=== PATIENT | male | born 2005 | race Hispanic/Latino ===

== ENCOUNTER 2024-12-18 20:06 | Emergency (ER) | payer SELFPAY ==
[2024-12-18] MEDS ORDERED: CEFAZOLIN SODIUM 2 GM/VIAL ONE (21:12)
[2024-12-18] MEDS ORDERED: HYDROCODONE/APAP 10/325 TAB ONE (21:12)
[2024-12-18] MEDS ORDERED: NA CHLORIDE 0.9% 100 ML ONE (21:12)
[2024-12-18] MEDS ORDERED: NA CHLORIDE 0.9% 500 ML ONE (21:12)
[2024-12-18] MEDS ORDERED: BACI/NEOMYCIN/POLY OINT 15GM TOP ONE (21:13)
--- NOTE | 2024-12-18 21:17 | EDPHYS ---
Physician Documentation [facility] Name: Marcelino Bell Age: 19 yrs Sex: Male : 2005 Arrival Date: 12/18/2024 Time: 20:06 Bed 5 Private MD: ED Physician Esa Pickens HPI: 12/18 20:58 This 19 yrs old Male presents to ER via Wheelchair with complaints of iris Laceration To Foot. 20:58 The patient has a laceration related to: walking. The laceration(s) is(are) located on iris the right leg. Onset: The symptoms/episode began/occurred just prior to arrival. Associated signs and symptoms: The patient has no apparent associated signs or symptoms. The patient has not experienced similar symptoms in the past. Historical: - Allergies: 20:19 No Known Allergies; vc1 - Home Meds: 20:19 None [Active]; vc1 - PMHx: 20:19 None; vc1 - PSHx: 20:19 None; vc1 - Immunization history:: Client reports having NOT received the Covid vaccine. Last tetanus immunization: up to date Flu vaccine is up to date. - Infectious Disease History:: Denies. - Social history:: Smoking status: Patient denies any tobacco usage or history of. ROS: 20:59 Constitutional: Negative for fever, chills, and weight loss, Eyes: Negative for injury, iris pain, redness, and discharge, ENT: Negative for injury, pain, and discharge, Neck: Negative for injury, pain, and swelling, Cardiovascular: Negative for chest pain, palpitations, and edema, Respiratory: Negative for shortness of breath, cough, wheezing, and pleuritic chest pain, Abdomen/GI: Negative for abdominal pain, nausea, vomiting, diarrhea, and constipation, Back: Negative for injury and pain, : Negative for injury, bleeding, discharge, and swelling, Skin: Negative for injury, rash, and discoloration, Neuro: Negative for headache, weakness, numbness, tingling, and seizure, Psych: Negative for depression, anxiety, suicide ideation, homicidal ideation, and hallucinations, Allergy/Immunology: Negative for hives, rash, and allergies, Endocrine: Negative for neck swelling, polydipsia, polyuria, polyphagia, and marked weight changes, 20:59 MS/extremity: Positive for laceration, pain, of the right foot and right leg, Exam: 20:59 Constitutional: This is a well developed, well nourished patient who is awake, alert, iris and in no acute distress. Head/Face: Normocephalic, atraumatic. Eyes: Pupils equal round and reactive to light, extra-ocular motions intact. Lids and lashes normal. Conjunctiva and sclera are non-icteric and not injected. Cornea within normal limits. Periorbital areas with no swelling, redness, or edema. ENT: Nares patent. No nasal discharge, no septal abnormalities noted. Tympanic membranes are normal and external auditory canals are clear. Oropharynx with no redness, swelling, or masses, exudates, or evidence of obstruction, uvula midline. Mucous membranes moist. Neck: Trachea midline, no thyromegaly or masses palpated, and no cervical lymphadenopathy. Supple, full range of motion without nuchal rigidity, or vertebral point tenderness. No Meningismus. Chest/axilla: Normal chest wall appearance and motion. Nontender with no deformity. No lesions are appreciated. Cardiovascular: Regular rate and rhythm with a normal S1 and S2. No gallops, murmurs, or rubs. Normal PMI, no JVD. No pulse deficits. Respiratory: Lungs have equal breath sounds bilaterally, clear to auscultation and percussion. No rales, rhonchi or wheezes noted. No increased work of breathing, no retractions or nasal flaring. Abdomen/GI: Soft, non-tender, with normal bowel sounds. No distension or tympany. No guarding or rebound. No evidence of tenderness throughout. Back: No spinal tenderness. No costovertebral tenderness. Full range of motion. Skin: Warm, dry with normal turgor. Normal color with no rashes, no lesions, and no evidence of cellulitis. Neuro: Awake and alert, GCS 15, oriented to person, place, time, and situation. Cranial nerves II-XII grossly intact. Motor strength 5/5 in all extremities. Sensory grossly intact. Cerebellar exam normal. Normal gait. Psych: Awake, alert, with orientation to person, place and time. Behavior, mood, and affect are within normal limits. 20:59 Musculoskeletal/extremity: Extremities: grossly normal except: laceration, pain, ROM: no acute changes, intact in all extremities, full active range of motion, full passive range of motion, Circulation is intact in all extremities. Sensation intact. Compartment Syndrome exam of affected extremity: is normal. Vital Signs: 20:17 BP 157 / 112; Pulse 103; Resp 14; Temp 98.7; Pulse Ox 99% ; Weight 81.65 kg; Height 5 vc1 ft. 2 in. ; Pain 10/10; 21:25 BP 148 / 102; Pulse 94; Resp 18; Pulse Ox 100% on R/A; al5 22:24 BP 112 / 60; Pulse 72; Resp 16; Pulse Ox 100% on R/A; al5 20:17 Body Mass Index 31.89 (81.65 kg, 160 cm) vc1 20:17 Pain Scale: Adult vc1 Laceration: 21:05 Wound Repair of 6cm ( 2.4in ) subcutaneous laceration to right foot. Irregularly iris shaped.. Skin/tissue flap noted.. Distal neuro/vascular/tendon intact. Anesthesia: Local anesthetic administered with 10 mls of 1% lidocaine w/ Epi. Wound prep: Moderate cleansing with betadine by me. Skin closed with 10 4-0 Prolene using vertical mattress sutures and sterile technique. Dressed with Neosporin, non-adherent dressing. Patient tolerated well. MDM: 20:09 Medical Screening Exam initiated iris 21:00 Differential diagnosis: superficial laceration, tendon injury, vascular injury. Data iris reviewed: vital signs, nurses notes, radiologic studies, plain films. Consideration of Admission/Observation Escalation of care including admission/observation considered. I considered the following discharge prescriptions or medication management in the emergency department Medications were administered in the Emergency Department. See MAR. Independent interpretation of the following test(s) in the Emergency Department X-Ray: My interpretation is right foot. Test considered but Not performed: Labs: no labs. Historians other than the Patient: Friend: friend well informed. Care significantly affected by the following chronic conditions: none. 12/18 20:11 Order name: Foot Right 3 View XRAY; Complete Time: 22:18 iris 12/18 20:11 Order name: Sutures, Prolene; Complete Time: 20:28 iris Administered Medications: 20:28 Drug: Lidocaine-Epinephrine Infiltration -1%: (1:100,000) 20 ml 20 ml Infiltration vc1 once; to bedside {Note: Administered by Dr. Pickens.} Volume: 20 ml; Route: Infiltration; Site: wound; 22:20 Follow up: Response: No adverse reaction al5 21:24 Not Given (already vaccinated recentlyy): boostrix tdap0.5 ml IM once; as a single dose al5 21:24 Drug: NS 0.9% IV 500 ml 500 ml IV at 1 bolus once; to be given as a bolus over 30 al5 minutes Volume: 500 ml; Route: IV; Rate: 1 bolus; Site: right antecubital; 22:19 Follow up: Response: No adverse reaction; IV Status: Completed infusion; IV Intake: al5 1000ml 21:24 Drug: ceFAZolin IVPB 2 grams IVPB once over 30 mins; (mix in 100 mL NS) Route: IVPB; al5 Infused Over: 30 mins; Site: right antecubital; 22:19 Follow up: IV Status: Completed infusion; IV Intake: 100ml al5 21:24 Drug: [place] PO 10 mg-325 mg 1 tabs PO once Route: PO; al5 22:19 Follow up: Response: No adverse reaction; Pain is decreased al5 21:24 Drug: Uxdtsfim-Mpuabwmcvx-Rcitwvoqe Topical Ointment 1 application Topical once Route: al5 Topical; Site: affected area; 22:19 Follow up: Response: No adverse reaction al5 Disposition Summary: 12/18/24 21:02 Discharge Ordered Notes: Location: Home iris Problem: new iris Symptoms: have improved iris Condition: Stable iris Diagnosis - Laceration without foreign body, right foot - 3 lacerations iris Followup: iris - With: Private Physician - When: 7 - 10 days - Reason: Recheck today's complaints, Staple/Suture removal, Re-evaluation by your physician Discharge Instructions: - Discharge Summary Sheet iris - Hypertension, Adult iris - Laceration Care, Adult iris - Hypertension, Adult, [id number] iris - Laceration Care, Adult, [id number] iris Forms: - Medication Reconciliation Form iris - Antibiotic Education iris - Prescription Opioid Use iris - Patient Portal Instructions iris - Leadership Thank You Letter [facility] Prescriptions: - Neosporin (vvh-upt-saxjs) 3.5mg-400 unit- 5,000 unit/gram Topical ointment - apply 1 application TOPICAL route 3 times per day; 15 gram; Refills: 0, Product iris Selection Permitted - Cephalexin 500 mg Oral capsule - take 1 capsule ORAL route every 6 hours for 10 days; 28 capsule; Refills: 0, iris Product Selection Permitted Signatures: Dispatcher [employer] Esa Hodge MD MD cha Calcote, Vanessa RN RN vc1 Silke Palmer RN RN al5
--- NOTE | 2024-12-18 21:17 | ER ---
Nurse's Notes [facility] Name: Marcelino Bell Age: 19 yrs Sex: Male : 2005 Arrival Date: 12/18/2024 Time: 20:06 Bed 5 Private MD: Diagnosis: Laceration without foreign body, right foot-3 lacerations Presentation: 12/18 20:17 Chief complaint: [employer] [id number], Cut right foot on sheet metal. vc1 Coronavirus screen: Client denies travel out of the [place] in the last 14 days. At this time, the client does not indicate any symptoms associated with coronavirus-19. Ebola Screen: Patient negative for fever greater than or equal to 101.5 degrees Fahrenheit, and additional compatible Ebola Virus Disease symptoms Patient denies exposure to infectious person. Patient denies travel to an Ebola-affected area in the 21 days before illness onset. No symptoms or risks identified at this time. Complicating Factors: There are no complicating factors for this patient. Initial Sepsis Screen: Does the patient meet any 2 criteria? No. Patient's initial sepsis screen is negative. Does the patient have a suspected source of infection? No. Patient's initial sepsis screen is negative. Risk Assessment: Do you want to hurt yourself or someone else? Patient reports no desire to harm self or others. Onset of symptoms was December 18, 2024. 20:17 Method Of Arrival: Wheelchair vc1 20:17 Acuity: ADRIAN 3 vc1 Triage Assessment: 20:21 General: Appears in no apparent distress. uncomfortable, well groomed, well developed, vc1 well nourished, Behavior is calm, cooperative, appropriate for age. Pain: Complains of pain in right foot Pain does not radiate. Pain currently is 10 out of 10 on a pain scale. Quality of pain is described as sharp, Pain began suddenly. EENT: No deficits noted. No signs and/or symptoms were reported regarding the EENT system. Neuro: Level of Consciousness is awake, alert, obeys commands, Oriented to person, place, time, situation, Appropriate for age. Cardiovascular: Capillary refill < 3 seconds Patient's skin is warm and dry. Respiratory: Airway is patent Respiratory effort is even, unlabored, Respiratory pattern is regular, symmetrical. GI: No deficits noted. No signs and/or symptoms were reported involving the gastrointestinal system. : No deficits noted. No signs and/or symptoms were reported regarding the genitourinary system. Derm: Skin is healthy with good turgor, Skin is dry, Wound noted right foot. Musculoskeletal: Circulation, motion, and sensation intact. Range of motion: intact in all extremities. Injury Description: Laceration sustained to right foot is 7.6 to 20 cm long, bleeding moderately. Historical: - Allergies: 20:19 No Known Allergies; vc1 - Home Meds: 20:19 None [Active]; vc1 - PMHx: 20:19 None; vc1 - PSHx: 20:19 None; vc1 - Immunization history:: Client reports having NOT received the Covid vaccine. Last tetanus immunization: up to date Flu vaccine is up to date. - Infectious Disease History:: Denies. - Social history:: Smoking status: Patient denies any tobacco usage or history of. Screenin:19 [facility] ED Fall Risk Assessment (Adult) History of falling in the last 3 months, vc1 including since admission No falls in past 3 months (0 pts) Confusion or Disorientation No (0 pts) Intoxicated or Sedated No (0 pts) Impaired Gait Yes (1 pt) Mobility Assist Device Used No (0 pt) Altered Elimination No (0 pt) Score/Fall Risk Level 0 - 2 = Low Risk Oriented to surroundings, Maintained a safe environment, Educated pt \T\ family on fall prevention, incl call for assistance when getting out of bed, Hourly rounding (assess needs \T\ fall precautionary measures) done. Abuse screen: Denies threats or abuse. Nutritional screening: No deficits noted. Tuberculosis screening: No symptoms or risk factors identified. Assessment: 20:45 General: Appears in no apparent distress. uncomfortable, Behavior is calm, cooperative. al5 Pain: Complains of pain in right foot. Neuro: Level of Consciousness is awake, alert, obeys commands, Oriented to person, place, time, situation. Cardiovascular: Capillary refill < 3 seconds Patient's skin is warm and dry. Respiratory: Airway is patent Respiratory effort is even, unlabored, Respiratory pattern is regular, symmetrical. GI: No signs and/or symptoms were reported involving the gastrointestinal system. : No signs and/or symptoms were reported regarding the genitourinary system. EENT: No signs and/or symptoms were reported regarding the EENT system. Derm: Skin is intact, is healthy with good turgor, Skin is normal, laceration to top of R foot. Musculoskeletal: No signs and/or symptoms reported regarding the musculoskeletal system. 21:23 Reassessment: Patient appears in no apparent distress at this time. No changes from al5 previously documented assessment. Patient and/or family updated on plan of care and expected duration. Pain level reassessed. Patient is alert, oriented x 3, equal unlabored respirations, skin warm/dry/pink. discharge pending antibiotics and fluids finish infusing. 22:24 Reassessment: Patient appears in no apparent distress at this time. Patient and/or al5 family updated on plan of care and expected duration. Pain level reassessed. Patient is alert, oriented x 3, equal unlabored respirations, skin warm/dry/pink. Patient states feeling better. Patient states symptoms have improved. Vital Signs: 20:17 BP 157 / 112; Pulse 103; Resp 14; Temp 98.7; Pulse Ox 99% ; Weight 81.65 kg; Height 5 vc1 ft. 2 in. ; Pain 10/10; 21:25 BP 148 / 102; Pulse 94; Resp 18; Pulse Ox 100% on R/A; al5 22:24 BP 112 / 60; Pulse 72; Resp 16; Pulse Ox 100% on R/A; al5 20:17 Body Mass Index 31.89 (81.65 kg, 160 cm) vc1 20:17 Pain Scale: Adult vc1 ED Course: 20:07 Patient arrived in ED. im 20:09 Esa Pickens MD is Attending Physician. iris 20:19 Triage completed. vc1 20:20 Arm band placed on right wrist. vc1 20:20 Patient has correct armband on for positive identification. Bed in low position. Call vc1 light in reach. Provided Education on: laceration repair. Pulse ox on. NIBP on. 20:26 Assist provider with laceration repair on right foot that was between 12.6 to 20 cm vc1 using sutures. Set up tray. Performed by Esa Pickens MD Patient tolerated well. 3 lacerations on right foot. 20:39 Silke Palmer RN is Primary Nurse. al5 21:15 Inserted saline lock: 20 gauge in right antecubital area, using aseptic technique. vc1 Flushed with 10 mL NS. 21:18 Foot Right 3 View XRAY In Process Unspecified. EDMS 21:47 Dressings: Kerlix X 2; right foot non-adherent dressing x 2 right foot. oh1 22:24 IV discontinued, intact, bleeding controlled, No redness/swelling at site. Pressure al5 dressing applied. Administered Medications: 20:28 Drug: Lidocaine-Epinephrine Infiltration -1%: (1:100,000) 20 ml 20 ml Infiltration vc1 once; to bedside {Note: Administered by Dr. Pickens.} Volume: 20 ml; Route: Infiltration; Site: wound; 22:20 Follow up: Response: No adverse reaction al5 21:24 Not Given (already vaccinated recentlyy): boostrix tdap0.5 ml IM once; as a single dose al5 21:24 Drug: NS 0.9% IV 500 ml 500 ml IV at 1 bolus once; to be given as a bolus over 30 al5 minutes Volume: 500 ml; Route: IV; Rate: 1 bolus; Site: right antecubital; 22:19 Follow up: Response: No adverse reaction; IV Status: Completed infusion; IV Intake: al5 1000ml 21:24 Drug: ceFAZolin IVPB 2 grams IVPB once over 30 mins; (mix in 100 mL NS) Route: IVPB; al5 Infused Over: 30 mins; Site: right antecubital; 22:19 Follow up: IV Status: Completed infusion; IV Intake: 100ml al5 21:24 Drug: [place] PO 10 mg-325 mg 1 tabs PO once Route: PO; al5 22:19 Follow up: Response: No adverse reaction; Pain is decreased al5 21:24 Drug: Zzbgjcen-Ukncyxyjqk-Brulibjvd Topical Ointment 1 application Topical once Route: al5 Topical; Site: affected area; 22:19 Follow up: Response: No adverse reaction al5 Medication: 20:21 VIS not applicable for this client. vc1 Intake: 22:19 IV: 100ml; Total: 100ml. al5 22:19 IV: 1000ml; Total: 1100ml. al5 Outcome: 21:02 Discharge ordered by MD. simmons 22:25 Discharged to home ambulatory, with family, al5 22:25 Condition: good 22:25 Discharge instructions given to patient, Instructed on discharge instructions, follow up and referral plans. medication usage, Demonstrated understanding of instructions, follow-up care, medications, Prescriptions given X 2, 23:02 Patient left the ED. vc1 Signatures: Dispatcher [employer] EDEsa Levi MD MD cha Calcote, Vanessa, RN RN vc1 Iliana Her Amanda, RN RN al5 Yamileth Vela oh1 Corrections: (The following items were deleted from the chart) 28 21:25 General: Appears in no apparent distress. uncomfortable, Behavior is calm, al5 cooperative, al5 :28 21:25 Pain: Complains of pain in right foot al5 al5 :28 21:25 Neuro: Level of Consciousness is awake, alert, obeys commands, Oriented to al5 person, place, time, situation, al5 :28 21:25 Cardiovascular: Capillary refill < 3 seconds Patient's skin is warm and dry. al5 al5 :28 21:25 Respiratory: Airway is patent Respiratory effort is even, unlabored, Respiratory al5 pattern is regular, symmetrical, al5 :28 21:25 GI: No signs and/or symptoms were reported involving the gastrointestinal system. al5 al5 :28 21:25 : No signs and/or symptoms were reported regarding the genitourinary system. al5al5 :28 21:25 EENT: No signs and/or symptoms were reported regarding the EENT system. al5 al5 :28 21:25 Musculoskeletal: No signs and/or symptoms reported regarding the musculoskeletal al5 system. al5 :28 21:25 Derm: Skin is intact, is healthy with good turgor, Skin is normal, laceration to al5 top of R foot al5 22:24 21:23 Reassessment: discharge pending antibiotics and fluids finish infusing al5 al5
[2024-12-18] MEDS ORDERED: LIDOCAINE 2% W/EPI 1:200,000 MPF 20 ML VIAL IM ONE (21:28)
--- NOTE | 2024-12-18 21:37 | RAD REPORT ---
EXAMINATION: XR RIGHT FOOT CLINICAL INDICATION: Male, 19 years old. PAIN TECHNIQUE: Multiple views of the right foot were obtained. COMPARISON: No prior exam. FINDINGS: Soft tissue swelling affects the great toe and midfoot medially. No fracture, dislocation o r radiopaque foreign body.
[2024-12-18 23:16] VITALS: TEMP 98.7
[2024-12-18 23:22] VITALS: O2SAT 100
[2024-12-18 23:28] VITALS: BP 112/60
== END 2024-12-18 23:02 | disposition home or self-care (01) ==
LOC: ER 20:06
DX: S91.311A Laceration without foreign body, right foot, initial encounter (principal)
CPT/HCPCS: 12042; 96365; 99284; J7040

== ENCOUNTER 2024-12-26 17:04 | Emergency (ER) | payer SELFPAY ==
--- NOTE | 2024-12-26 17:28 | EDPHYS ---
Physician Documentation [facility] Name: Marcelino Bell Age: 19 yrs Sex: Male : 2005 Arrival Date: 12/26/2024 Time: 17:04 Bed 12 Private MD: ED Physician Esa Pickens HPI: 12/26 17:22 This 19 yrs old Male presents to ER via Unassigned with complaints of Suture sb4 Removal. 17:22 The patient has sutures on the right foot. Previous treatment: The patient was sb4 initially treated 8 day(s) ago, the care was rendered at [facility], Treatment type: The patient's original treatment included IV antibiotics, cefazolin, sutures. Sutures/brent progress: The patient has no c/o's. The wound is well-healing with no redness, swelling, discharge, or dehiscence reported. ROS: 17:22 Constitutional: Negative for fever, chills, and weight loss, sb4 17:22 Skin: Positive for per HPI, Exam: 17:22 Constitutional: This is a well developed, well nourished patient who is awake, alert, sb4 and in no acute distress. Head/Face: Normocephalic, atraumatic. Eyes: Extra-ocular motions intact. Periorbital areas with no swelling, redness, or edema. Respiratory: No increased work of breathing, no retractions or nasal flaring. 17:22 Skin: Wound recheck: Suture laceration closure: the wound is healing well, the edges are well approximated, no evidence of dehiscence, no drainage, no erythema, no swelling, Vital Signs: 17:24 BP 112 / 87; Pulse 79; Resp 16; Temp 97.6; Pulse Ox 100% on R/A; iw Procedures: 17:27 Suture/Staple removal: Removed 3 sutures, from right foot, site appears well healed, sb4 Patient tolerated well, patient states that most of the sutures have either come out or he took out himself, only 3 remain . MDM: 17:07 Medical Screening Exam initiated sb4 17:28 Data reviewed: vital signs, nurses notes, and as a result, I will discharge patient. sb4 Counseling: I had a detailed discussion with the patient and/or guardian regarding the historical points, exam findings, and any diagnostic results supporting the discharge/admit diagnosis, to return to the emergency department if symptoms worsen or persist or if there are any questions or concerns that arise at home. Administered Medications: No medications were administered Disposition: 12/27 12:35 Co-signature as Attending Physician, Esa Pickens MD I agree with the assessment and iris plan of care. Disposition Summary: 12/26/24 17:27 Discharge Ordered Notes: Location: Home sb4 Problem: new sb4 Symptoms: have improved sb4 Condition: Stable sb4 Diagnosis - Encounter for removal of sutures sb4 Followup: sb4 - With: Private Physician - When: 1 week - Reason: Recheck today's complaints, Re-evaluation by your physician Discharge Instructions: - Discharge Summary Sheet sb4 - Suture Removal, Care After sb4 Forms: - Patient Portal Instructions sb4 - Leadership Thank You Letter sb4 Signatures: Esa Pickens MD MD cha Brown, Sophia, TAC PADevaughn sb4 Corrections: (The following items were deleted from the chart) 12/26 17:28 17:27 Suture/Staple removal: Removed 3 sutures, from right foot, site appears well sb4 healed, Patient tolerated well, sb4
--- NOTE | 2024-12-26 17:28 | ER ---
Nurse's Notes [facility] Name: Marcelino Bell Age: 19 yrs Sex: Male : 2005 Arrival Date: 12/26/2024 Time: 17:04 Bed 12 Private MD: Diagnosis: Encounter for removal of sutures Presentation: 12/26 17:23 Chief complaint: Patient states: needs sutures removed from right ankle. Coronavirus iw screen: At this time, the client does not indicate any symptoms associated with coronavirus-19. Initial Sepsis Screen: Does the patient meet any 2 criteria? No. Patient's initial sepsis screen is negative. Does the patient have a suspected source of infection? No. Patient's initial sepsis screen is negative. Risk Assessment: Do you want to hurt yourself or someone else? Patient reports no desire to harm self or others. 17:23 Method Of Arrival: Ambulatory iw 17:23 Acuity: ADRIAN 4 iw Screenin:35 [facility] ED Fall Risk Assessment (Adult) History of falling in the last 3 months, jb4 including since admission No falls in past 3 months (0 pts) Confusion or Disorientation No (0 pts) Intoxicated or Sedated No (0 pts) Impaired Gait No (0 pts) Mobility Assist Device Used No (0 pt) Altered Elimination No (0 pt) Score/Fall Risk Level 0 - 2 = Low Risk Oriented to surroundings, Maintained a safe environment. Abuse screen: Denies threats or abuse. Nutritional screening: No deficits noted. Tuberculosis screening: No symptoms or risk factors identified. Assessment: 17:35 General: Appears in no apparent distress. comfortable, Behavior is calm, cooperative, jb4 appropriate for age. Pain: Denies pain. Neuro: Level of Consciousness is awake, alert, obeys commands, Oriented to person, place, time, situation. Cardiovascular: Patient's skin is warm and dry. Respiratory: Airway is patent Respiratory effort is even, unlabored, Respiratory pattern is regular, symmetrical. Derm: Skin is pink, warm \T\ dry. old laceration noted to the right foot. Sutures removed from Site by ER provider. Vital Signs: 17:24 BP 112 / 87; Pulse 79; Resp 16; Temp 97.6; Pulse Ox 100% on R/A; iw ED Course: 17:06 Patient arrived in ED. mr 17:06 [facility] Hart [facility] sb4 17:06 Esa Pickens MD is Attending Physician. sb4 17:24 Triage completed. iw 17:35 Patient has correct armband on for positive identification. Bed in low position. Call jb4 light in reach. Side rails up X 1. Provided Education on: discharge instructions.. 17:35 No provider procedures requiring assistance completed. Patient did not have IV access jb4 during this emergency room visit. Administered Medications: No medications were administered Medication: 17:35 VIS not applicable for this client. jb4 Outcome: 17:27 Discharge ordered by . sb4 17:35 Discharged to home ambulatory, jb4 17:35 Condition: stable 17:35 Discharge instructions given to patient, Instructed on discharge instructions, follow up and referral plans. Demonstrated understanding of instructions, follow-up care, 17:39 Patient left the ED. jb4 Signatures: Stacie Lewis, Reg Reg mr Ade Moss RN RN iw Dale Healy RN RN jb4 Camelia Hart PA-C PA-C sb4
[2024-12-26 17:43] VITALS: BP 112/87; TEMP 97.6; O2SAT 100
== END 2024-12-26 17:39 | disposition home or self-care (01) ==
LOC: ER 17:04
DX: Z48.02 Encounter for removal of sutures (principal)
CPT/HCPCS: 99282